=== PATIENT | male | born 1970 | race African-American/Black ===

== ENCOUNTER 2017-08-06 16:20 | Emergency (ER) | payer BC, OTHER ==
[~2017-08-06] VITALS: Ht 198.1 cm; Wt 132.9 kg
[~2017-08-06 16:20] MED LIST: NORCO 5-325 TA1 EACH PO
[2017-08-06] MEDS ORDERED: FLOMAX0.4 MG PO (16:35)
[2017-08-06] MEDS ORDERED: CELEXA20 MG PO (16:35)
[2017-08-06] MEDS ORDERED: NORCO 5-325 TA1 EACH PO (16:50)
[2017-08-06 17:38] VITALS: BP 125/54
== END 2017-08-06 17:39 | disposition home or self-care (01) ==
LOC: M.ERS 16:20
DX: S86.011A Strain of right Achilles tendon, initial encounter (principal); X58.XXXA Exposure to other specified factors, initial encounter; Y93.67 Activity, basketball; Y92.89 Other specified places as the place of occurrence of the external cause; Y99.8 Other external cause status

== ENCOUNTER 2018-12-03 21:19 | Emergency (ER) | payer OTHER ==
[~2018-12-03] VITALS: Ht 198.1 cm; Wt 134.3 kg
[~2018-12-03 21:19] MED LIST changes: +CELEXA20 MG PO; +FLOMAX0.4 MG PO
[2018-12-03] MEDS ORDERED: CEFDINIR300 MG PO (21:38)
[2018-12-03 23:14] LABS: ABSOLUTE BASOPHILS 0.1 thou/uL (0.0-0.2); ABSOLUTE EOSINOPHILS 0.4 thou/uL (0.0-0.7); ABSOLUTE LYMPHOCYTES 2.5 thou/uL (0.8-5.3); ABSOLUTE MONOCYTES 1.1 thou/uL (0.0-1.2); ABSOLUTE NEUTROPHILS 3.5 thou/uL (1.6-8.1); BASOPHILS 0.8 %; EOSINOPHILS 5.1 %; HEMATOCRIT 43.2 % (42.0-52.0); HEMOGLOBIN 15.3 gm/dL (14.0-18.0); LYMPHOCYTES 33.6 %; MCH 32.9 pg (26.0-34.0); MCHC 35.4 g/dL (28.0-37.0); MCV 92.9 fL (80.0-100.0); MONOCYTES 14.4 %; MPV 7.7 fl. (7.2-11.1); NUCLEATED RBCS 0 /100WBC; PLATELET COUNT* 311 thou/uL (150-400); POLYS 46.1 %; RBC 4.66 mil/uL (4.50-6.00); RDW-CV 13.3 % (10.5-14.5); WBC 7.6 thou/uL (4.0-11.0)
[2018-12-03 23:30] LABS: CALCIUM 9.3 mg/dL (8.5-10.1); POTASSIUM 3.7 mmol/L (3.5-5.1)
[2018-12-03 23:34] LABS: ALBUMIN 3.8 g/dL (3.4-5.0); TOTAL BILIRUBIN 0.2 mg/dL (<0.1-1.0); TOTAL PROTEIN 7.4 g/dL (6.4-8.2)
[2018-12-03] MEDS ORDERED: PROAIR HFA8.5 GM INH (23:43)
[2018-12-03] MEDS ORDERED: TYLENOL WITH CO1 TA1 PO (23:43)
[2018-12-03] MEDS ORDERED: TESSALON PERLE100 MG PO (23:43)
[2018-12-04 00:04] VITALS: BP 130/74
--- NOTE | 2018-12-04 13:35 | EKG ---
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
== END 2018-12-04 00:06 | disposition home or self-care (01) ==
LOC: M.ERS 21:19
PROVIDERS: Physician Assistant
DX: J06.9 Acute upper respiratory infection, unspecified (principal)

== ENCOUNTER 2020-09-29 20:11 | Emergency (ER) | payer OTHER ==
[~2020-09-29] VITALS: Ht 198.1 cm; Wt 136.1 kg
[~2020-09-29 20:11] MED LIST changes: +CEFDINIR300 MG PO; +PROAIR HFA8.5 GM INH; +TESSALON PERLE100 MG PO; +TYLENOL WITH CO1 TA1 PO
[2020-09-30 01:45] VITALS: BP 127/74
== END 2020-09-30 01:45 | disposition left against medical advice (07) ==
LOC: M.ERS 20:11
DX: Z53.21 Procedure and treatment not carried out due to patient leaving prior to being seen by health care provider (principal)